=== PATIENT | male | born 1985 | race Caucasian/White ===

== ENCOUNTER 2023-06-15 13:11 | Emergency (ER) | payer BC, SELFPAY ==
--- NOTE | ~2023-06-15 | XR_ITS ---
EXAM: [id number] DATE: 06/15/2023 13:31 HISTORY: RT POSTERIOR NECK PAIN RADIATING DOWN RT ARM X1 DAY . COMPARISON: None available. FINDINGS: Craniocervical association and atlantoaxial joint are aligned. Mild degenerative change at the atlantodental interval. No prevertebral soft tissue swelling. Vertebral body heights maintained. Disc space narrowing and marginal osteophytosis, mild at C4-5 and C6-7, moderate at C5-6. Focal kyph osis at C5-6. Facet hypertrophy and sclerosis in the lower cervical spine. IMPRESSION: Multilevel degenerative disc disease, moderate at C5-6. Moderate lower cervical facet art hropathy. Reviewed, dictated and finalized at location K. IMPRESSION: Multilevel degenerative disc disease, moderate at C5-6. Moderate lo wer cervical facet arthropathy.
[2023-06-15 13:16] VITALS: BP 132/89; PULSE 93; RESP 18; TEMP 36.4; O2SAT 99
--- NOTE | 2023-06-15 13:18 | ED.EXTPRO ---
HPI - Extremity Problem General Chief complaint: Extremity Problem,Nontraumatic Stated complaint: R POSTERIOR SHOULDER PAIN Time Seen by Provider: 06/15/23 13:47 38-year-old male no medical problems presents to the emergency room for evaluation of the right sided neck pain that began after patient went out for a run yesterday. Patient states he was stretching and felt a muscle pull in his neck. Patient states the pain radiates to his right shoulder and down into the mid back. States he took ibuprofen with no pain relief. Pain is worse when he shrugs shoulders in with certain movements of the spine right shoulder. Patient denies any known injury or trauma. Focused HPI: GENERAL: Well-appearing, well-nourished, and in no acute distress. HEAD: Normocephalic, atraumatic. CHEST: Clear to auscultation. No respiratory distress. HEART: Regular rate and rhythm. NEURO: Alert and oriented x3. MSK: Tenderness over his right trapezius muscle Patient screened in triage and initial orders placed. Additional care and disposition to be based upon diagnostic testing and treatment. Related Data Allergies Allergy/AdvReac Type Severity Reaction Status Date / Time No Known Allergies Allergy Unverified 02/16/17 16:24 Review of Systems Review of Systems: All systems unremarkable except for HPI physical exam Exam Narrative: GENERAL: Well-appearing, well-nourished, no physical limitations, and in no acute distress. HEAD: Normocephalic, atraumatic. EYES: Conjunctivae normal, PERRLA and EOMI. CHEST: Clear to auscultation. No respiratory distress. No wheezes rales or rhonchi. HEART: Regular rate and rhythm. No murmur heard. Normal peripheral pulses. BACK: No midline cervical tenderness, step-offs, bony abnormality; pain with range of motion with bilateral rotation and lateral bend EXTREMITIES: Right shoulder: No bony abnormality. Limited range of motion without pain. No ecchymosis or swelling noted no tenderness over the right trapezius muscle. SKIN: Warm, dry, no rash. No noted wounds NEURO: No focal deficits. Alert and oriented x3. MAEW. CN's II-XI intact bilaterally, normal gait PSYCH: Cooperative. Normal mood and affect. Course Vital Signs Vital signs: Vital Signs Temperature 36.4 C 06/15/23 13:16 Pulse Rate 93 06/15/23 13:16 Respiratory Rate 18 04/18/24 13:16 Blood Pressure 132/89 06/15/23 13:16 Pulse Oximetry 99 06/15/23 13:16 Temperature 36.4 C 06/15/23 13:16 Pulse Rate 93 06/15/23 13:16 Respiratory Rate 18 06/15/23 13:16 Blood Pressure 132/89 06/15/23 13:16 Pulse Oximetry 99 06/15/23 13:16 MDM - Extremity (Nontraumatic) Imaging Data Radiologist's impression: Impressions Cervical Spine X-Ray 06/15/23 13:36 IMPRESSION: Multilevel degenerative disc disease, moderate at C5-6. Moderate lower cervical facet arthropathy. Discharge Plan Discharge Clinical Impression: Muscle strain Patient Disposition: Home, Self-Care Condition: Stable Instructions: Antibiotic Form Prescriptions: New methocarbamol 750 mg tablet 750 mg PO QID Qty: 30 0RF naproxen 500 mg tablet 500 mg PO BID Qty: 20 0RF Follow-up/Referrals: [facility] [Non-Staff] - Time of Disposition: 13:54
== END 2023-06-15 14:15 | disposition home or self-care (01) ==
PROVIDERS: Emergency Provider Nurse Practitioner Family
DX: S16.1XXA Strain of muscle, fascia and tendon at neck level, initial encounter (principal); M50.322 Other cervical disc degeneration at C5-C6 level; X50.0XXA Overexertion from strenuous movement or load, initial encounter
CPT/HCPCS: 72040; 99283